=== PATIENT | female | born 2000 | race Caucasian/White ===

== ENCOUNTER 2023-05-01 16:03 | Emergency (ER) | payer OTHER ==
[2023-05-01 16:26] VITALS: RESP 18; TEMP 98.8; BMI 20.1
[2023-05-01] MEDS ORDERED: LIDOCAINE 5% TOPICAL PATCH TP ONE (16:41)
[2023-05-01] MEDS ORDERED: LIDOCAINE 5% TOPICAL PATCH ONE (17:39)
[2023-05-01] MEDS ORDERED: ACETAMINOPHEN 1000 MG/100 ML BAG IVPB ONE (18:45)
[2023-05-01] MEDS ORDERED: ACETAMINOPHEN INJECTION 100 ML IVPB ONE (18:56)
[2023-05-01 18:59] LABS: BASO % 0.3 % (0-2.0); EOS % 0.2 % (0-4.5); HEMATOCRIT 40.3 % (32.4-45.2); HEMOGLOBIN 13.2 GM/dL (10.7-15.3); LYMPH % 12.8 % (8-40); MCH 29.4 pg (25.7-33.7); MCHC 32.8 g/dl (32.0-36.0); MEAN CELL VOLUME 89.8 fl (80-96); MEAN PLT VOLUME 9.7 fl (7.5-11.1); MONO % 4.9 % (3.8-10.2); NEUT % 81.8 % (42.8-82.8); PLATELET COUNT 250 10^3/uL (134-434); RBC 4.49 M/mm3 (3.60-5.2); RDW 12.8 % (11.6-15.6); WHITE BLOOD COUNT 12.2 K/mm3 (4.0-10.0)
[2023-05-01 19:00] LABS: PH,URINE 6.5 (5.0-8.0); URINE APPEARANCE CLEAR; URINE BILIRUBIN NEGATIVE (NEGATIVE); URINE COLOR YELLOW; URINE GLUCOSE (UA) NEGATIVE (NEGATIVE); URINE KETONE NEGATIVE (NEGATIVE); URINE LEUK ESTERASE NEGATIVE (NEGATIVE); URINE NITRITE NEGATIVE (NEGATIVE); URINE PROTEIN NEGATIVE (NEGATIVE); URINE UROBILINOGEN 0.2 mg/dL (0.2-1.0)
[2023-05-01 19:19] LABS: ALBUMIN 3.8 g/dl (3.4-5.0); BLOOD UREA NITROGEN 9.7 mg/dL (7-18); CALCIUM 9.2 mg/dL (8.5-10.1)
[2023-05-01 19:23] LABS: CREATININE 0.7 mg/dL (0.55-1.3)
[2023-05-01 19:24] LABS: BILIRUBIN,TOTAL 0.3 mg/dL (0.2-1); TOT PROT 7.5 g/dl (6.4-8.2)
[2023-05-01] MEDS ORDERED: KETOROLAC TROMETHAMINE 30 MG/1 ML VIAL IVPUSH ONE (19:25)
[2023-05-01] MEDS ORDERED: diazePAM 5 MG TABLET PO ONE (19:25)
[2023-05-01] MEDS ORDERED: diazePAM 5 MG TABLET ONE (20:02)
[2023-05-01] MEDS ORDERED: KETOROLAC TROMETHAMINE 30 MG/1 ML VIAL ONE (20:03)
[2023-05-01 21:45] VITALS: BP 108/78; PULSE 80
[2023-05-01] MEDS ORDERED: LIDOCAINE PATCH REMOVAL MC SCH (22:00)
== END 2023-05-01 21:46 | disposition home or self-care (01) ==
LOC: JER 16:03
PROC: 3E033NZ Introduction of Analgesics, Hypnotics, Sedatives into Peripheral Vein, Percutaneous Approach (ICD-10-PCS; principal; 2023-05-01)
PROC: 3E0333Z Introduction of Anti-inflammatory into Peripheral Vein, Percutaneous Approach (ICD-10-PCS; 2023-05-01)
DX: M54.50 Low back pain, unspecified (principal); S39.012A Strain of muscle, fascia and tendon of lower back, initial encounter; X58.XXXA Exposure to other specified factors, initial encounter
CPT/HCPCS: 36415; 80053; 81003; 84703; 85025; 87086; 99284-25

== ENCOUNTER 2023-11-05 22:20 | Emergency (ER) | payer OTHER ==
[~2023-11-05 22:20] MED LIST: LIDOCAINE PATCH REMOVAL MC SCH
[2023-11-05 22:27] VITALS: BP 119/72; PULSE 80; RESP 20; TEMP 97.2; BMI 20.1
[2023-11-05] MEDS ORDERED: KETOROLAC TROMETHAMINE 30 MG/1 ML VIAL IM ONE (23:34)
[2023-11-05] MEDS ORDERED: diazePAM 5 MG TABLET PO ONE (23:34)
[2023-11-05] MEDS ORDERED: LIDOCAINE 4% PATCH TP ONE ×3 (23:34→23:41)
[2023-11-05] MEDS ORDERED: ACETAMINOPHEN 500 MG TABLET (FP) PO ONE (23:34)
[2023-11-05] MEDS ORDERED: ACETAMINOPHEN 500 MG TABLET (FP) ONE (23:39)
[2023-11-05] MEDS ORDERED: diazePAM 5 MG TABLET ONE (23:39)
[2023-11-05] MEDS ORDERED: KETOROLAC TROMETHAMINE 30 MG/1 ML VIAL ONE (23:40)
== END 2023-11-06 00:17 | disposition home or self-care (01) ==
LOC: JER 22:20
PROC: 3E0233Z Introduction of Anti-inflammatory into Muscle, Percutaneous Approach (ICD-10-PCS; principal; 2023-11-05)
DX: M54.41 Lumbago with sciatica, right side (principal); S39.012A Strain of muscle, fascia and tendon of lower back, initial encounter; X50.1XXA Overexertion from prolonged static or awkward postures, initial encounter
CPT/HCPCS: 99284-25

== ENCOUNTER 2025-06-14 06:53 | Inpatient (IN) | payer OTHER ==
[2025-06-14] MEDS: LACTATED RINGERS SOLUTION 1,000 ML IV ONE (09:04)
[2025-06-14 11:01] LABS: ABSOLUTE IMMATURE GRANULOCYTES 0.18 x10^3/uL (0.0-0.031); BASOPHILS # 0.03 x10^3/uL (0.01-0.08); EOSINOPHIL % 0.1 % (0.7-5.8); EOSINOPHILS # 0.01 x10^3/uL (0.04-0.36); MCHC 34.5 g/dl (32.2-35.5); MEAN CELL VOLUME 91.3 fl (79.4-94.8); MEAN PLT VOLUME 10.0 fl (9.4-12.3); MONOCYTE # 0.68 x10^3/uL (0.24-0.86); MONOCYTE % 5.3 % (4.7-12.5); RDW 12.2 % (12.1-16.5)
[2025-06-14 11:08] LABS: INR 0.92 (0.83-1.09); PROTHROMBIN TIME (PATIENT) 10.1 SEC (9.7-13.0)
[2025-06-14 11:11] LABS: ACTIVATED PTT 29.2 SECONDS (25.2-36.5)
[2025-06-14 11:12] LABS: GLUCOSE,RANDOM 147.0 mg/dL (74-106)
[2025-06-14 11:14] LABS: CO2 19.0 mmol/L (21-32)
[2025-06-14 11:18] LABS: CREATININE 0.55 mg/dL (0.55-1.3)
[2025-06-14 11:30] VITALS: BMI 24.6
[2025-06-14] MEDS ORDERED: FENTANYL/BUPIVACAINE/NS/PF - PCEA - 50 ML DISP.SYRIN EP ONE ×2 (12:16→17:46)
[2025-06-14] MEDS: LACTATED RINGERS SOLUTION 1,000 ML/1,000 ML INFUS.BAG IV SCH (12:34)
[2025-06-14] MEDS ORDERED: NALOXONE HCL 0.4 MG/ML VIAL IVPUSH PRN (12:44)
[2025-06-14] MEDS ORDERED: BUPIVACAINE HCL/PF 0.25% (2.5MG/ML) 10 ML VIAL ONE (12:52)
[2025-06-14] MEDS: FENTANYL/BUPIVACAINE/NS/PF - PCEA - 50 ML DISP.SYRIN EP SCH (13:00)
[2025-06-14] MEDS ORDERED: OXYTOCIN 20 UNITS in 0.9% NS 20 UNIT/1,000 ML INFUS.BAG IV ONE (18:01)
[2025-06-14] MEDS: OXYTOCIN 20 UNITS in 0.9% NS 20 UNIT/1,000 ML INFUS.BAG IV SCH (19:20)
[2025-06-14] MEDS: METHYLERGONOVINE MALEATE 0.2 MG/1 ML AMP IM PRN (19:52)
[2025-06-14 20:00] LABS: CORD BASE EXCESS -3.500 mmol/L (0-2); CORD HCO3 23.7 mmHg (20-29); CORD PCO2 51.1 mmHg (30-78); CORD pH 7.285 (7.14-7.44)
[2025-06-14 20:02] LABS: CORD BASE EXCESS -4.8 mmol/L (0-2); CORD HCO3 25.1 mmHg (20-29); CORD PCO2 68.3 mmHg (30-78); CORD pH 7.183 (7.14-7.44)
[2025-06-14] MEDS ORDERED: BENZOCAINE 28 GM HEMORRHOIDAL OINTMENT TP PRN (20:51)
[2025-06-14] MEDS ORDERED: ACETAMINOPHEN 325 MG TABLET (FP) PO PRN (20:51)
[2025-06-14] MEDS ORDERED: BISACODYL 10 MG SUPP.RECT RC PRN (20:51)
[2025-06-14] MEDS: BENZOCAINE 20% 57 GM BOTTLE TP PRN (23:52)
[2025-06-14] MEDS: IBUPROFEN 600 MG TABLET (FP) PO PRN (23:52)
[2025-06-14] MEDS: WITCH HAZEL 50% (TUCKS) 40 PAD/JAR PAD TP PRN (23:54)
[2025-06-15 07:47] LABS: MCHC 34.5 g/dl (32.2-35.5); MEAN CELL VOLUME 94.7 fl (79.4-94.8); MEAN PLT VOLUME 10.2 fl (9.4-12.3); RDW 12.3 % (12.1-16.5)
[2025-06-15] MEDS: FERROUS SO4 325 MG TABLET (FP) PO SCH (07:48)
[2025-06-15] MEDS: PRENATAL VITAMINS W/ FOLIC ACID TABLET (FP) PO SCH (09:54)
[2025-06-15 21:41] VITALS: TEMP 98.4
[2025-06-15] MEDS ORDERED: SENNOSIDES/DOCUSATE COMBO (SENNA PLUS) TABLET (UD) PO PRN (22:00)
[2025-06-16 10:35] VITALS: BP 112/70; PULSE 109; RESP 20
[2025-06-16 11:12] LABS: ABSOLUTE IMMATURE GRANULOCYTES 0.27 x10^3/uL (0.0-0.031); BASOPHILS # 0.03 x10^3/uL (0.01-0.08); EOSINOPHIL % 0.4 % (0.7-5.8); EOSINOPHILS # 0.07 x10^3/uL (0.04-0.36); MCHC 33.7 g/dl (32.2-35.5); MEAN CELL VOLUME 95.5 fl (79.4-94.8); MEAN PLT VOLUME 10.1 fl (9.4-12.3); MONOCYTE # 0.96 x10^3/uL (0.24-0.86); MONOCYTE % 5.8 % (4.7-12.5); RDW 12.7 % (12.1-16.5)
== END 2025-06-16 12:40 | disposition home or self-care (01) | DRG 560 ==
LOC: JDEL 06:53 → JLDR 10:37 → J3W 22:19
PROVIDERS: ADMIT Obstetrics & Gynecology; ATTEND Obstetrics & Gynecology
PROC: 10E0XZZ Delivery of Products of Conception, External Approach (ICD-10-PCS; principal; 2025-06-14)
PROC: 0KQM0ZZ Repair Perineum Muscle, Open Approach (ICD-10-PCS; 2025-06-14)
PROC: 0W8NXZZ Division of Female Perineum, External Approach (ICD-10-PCS; 2025-06-14)
DX: O70.1 Second degree perineal laceration during delivery (principal); Z3A.38 38 weeks gestation of pregnancy; Z37.0 Single live birth
CPT/HCPCS: 36415; 36600; 59409; 80048; 82803; 85025; 85610; 85730; 86780; 86850; 86900; 86901